=== PATIENT | female | born 1985 | race Caucasian/White ===

== ENCOUNTER 2018-07-15 16:00 | Emergency (ER) | payer OTHER ==
[2018-07-15] MEDS: ACETAMINOPHEN 325 MG TAB PO (20:02)
== END 2018-07-16 01:38 | disposition home or self-care (01) ==
LOC: FTE 07-16 01:38
DX: S09.90XA Unspecified injury of head, initial encounter (principal); E03.9 Hypothyroidism, unspecified; R51 Headache; W21.03XA Struck by baseball, initial encounter; Y92.9 Unspecified place or not applicable
CPT/HCPCS: 70450; 81025; 99284-25